=== PATIENT | female | born 1945 | race Caucasian/White ===

== ENCOUNTER 2018-12-19 12:34 | Inpatient (IN) ==
--- NOTE | 2018-12-19 14:08 | EKG Report ---
Test Performed on : 12/19/2018 2:02:27 PM Test Reason : seizure Blood Pressure : / mmHG Vent. Rate : 066 BPM Atrial Rate : 066 BPM P-R Int : 160 ms QRS Dur : 082 ms QT Int : 420 ms P-R-T Axes : 059 -37 022 degrees QTc Int : 440 ms Normal sinus rhythm. Left axis deviation Low voltage QRS Septal infarct (cited on or before 02-MAY-2015) Abnormal ECG When compared with ECG of 17-AUG-2018 07:48, fusion complexes are no longer present premature ventricular complexes. are no longer present Questionable change in initial forces of Septal leads Confirmed by Francine VALDES, Cory Sandoval ([id number]) on 12/19/2018 3:57:52 PM
--- NOTE | 2018-12-19 14:45 | Diag Imaging Result Doc PS360 ---
CT HEAD W/O CONTRAST - 12/19/2018 INDICATION: seizure COMPARISON: 07/13/2018 FINDINGS: The ventricles and sulci are normal in size and contour. No intracranial mass or hemorrhage. The skull is intact. The sinuses mastoids and middle ears are clear. IMPRESSION: Negative exam. This exam was performed using automated exposure control, adjustment of mA or kV according to patient size, and/or use of iterative reconstruction technique Electronically signed by Dell Brady 12/19/2018 2:43 PM
--- NOTE | 2018-12-19 15:01 | Diag Imaging Result Doc PS360 ---
CHEST-PORTABLE - 12/19/2018 INDICATION: seizure COMPARISON: 10/17/2018 FINDINGS: There is some linear atelectasis in the lung bases. The lungs are clear. Heart size is normal. No pneumothorax or pleural effusion. IMPRESSION: Linear atelectasis in the lung bases. Electronically signed by Dell Brady 12/19/2018 2:58 PM
[2018-12-19 17:26] LABS: BASO# 0.03 X1000 (0.0-0.2); BASO% 0.4 % (0.0-0.8); EOS# 0.23 X1000 (0.0-0.7); EOS% 3.2 % (0.0-10.0); HEMATOCRIT 35.1 % (37.0-47.0); HEMOGLOBIN 11.2 g/dL (12.0-16.0); LYMPH# 1.49 X1000 (1.2-3.4); LYMPH% 20.7 % (20.5-51.1); MCH 28.1 PG (27-31); MCHC 31.9 g/dL (33-37); MCV 88.2 FL (81-99); MONO# 0.55 X1000 (0.11-0.59); MONO% 7.6 % (1.7-9.3); MPV 10.9 FL (7.4-10.4); NEUT% 68.1 % (42.2-75.2); PLT 190 X1000 (130-400); RBC 3.98 XMIL (4.2-5.4); RDW 13.1 % (11.5-14.5)
[2018-12-19] MEDS: PERCOCET-5 PO PRN ×2 (17:27→23:06)
[2018-12-19 17:35] LABS: INR 0.96; PROTIME 13.5 Seconds (11.0-16.0)
[2018-12-19 17:50] LABS: AGAP 10; ALB/GLOB RATIO 1.6; ALBUMIN 3.6 g/dL (3.5-5.0); ALKALINE PHOSPHATASE 86 U/L (32-104); BUN 13 mg/dL (8-22); CHLORIDE 101 mmol/L (98-107); CK PROFILE 55 U/L (24-173); COSMO 279; CREATININE 0.6 mg/dL (0.5-0.9); ESTIMATED GFR > 60; GLUCOSE 84 mg/dL (70-104); GOT 16 U/L (10-30); GPT 8 U/L (10-36); POTASSIUM 4.2 mmol/L (3.5-5.1); SODIUM 140 mmol/L (136-145); TCO2 29 mmol/L (25-35); TOTAL BILIRUBIN 0.36 mg/dL (0.20-1.00); TOTAL PROTEIN 5.8 g/dL (6.3-8.3)
[2018-12-19 18:00] LABS: FREE T4 1.03 ng/dL (0.93-1.70)
[2018-12-19 18:03] LABS: TSH 9.99 uIUmL (0.27-4.20)
[2018-12-19 22:37] LABS: URINE SOURCE VOIDED
[2018-12-19 22:40] LABS: BILIRUBIN URINE NEGATIVE (NEGATIVE); BLOOD URINE NEGATIVE (NEGATIVE); COLOR YELLOW; GLUCOSE URINE NEGATIVE (NEGATIVE); KETONE URINE NEGATIVE (NEGATIVE); LEUKOCYTES URINE NEGATIVE (NEGATIVE); NITRITE URINE NEGATIVE (NEGATIVE); PH URINE 6.5; PROTEIN URINE NEGATIVE (NEGATIVE); SP GRAVITY URINE 1.004; TURBIDITY URINE CLEAR (CLEAR); UROBILINOGEN URINE NORMAL (NORMAL)
[2018-12-19 23:02] LABS: UR EPITHELIAL CELLS <10 /HPF (<10); URINE BACTERIA NEGATIVE /HPF; URINE RBC <10 /HPF (<10); URINE WBC <10 /HPF (<10)
[2018-12-19] MEDS: DEPAKOTE ER PO SCH (23:06)
[2018-12-19 23:46] LABS: UR AMPHETAMINES QUAL NONE DETECTED (NONE DETECT); UR BARBITUATES QUAL NONE DETECTED (NONE DETECT); UR BENZODIAZEPIN QUAL PRESUMPTIVE POSITIVE (NONE DETECT); UR CANNABINOIDS QUAL NONE DETECTED (NONE DETECT); UR COCAINE QUAL NONE DETECTED (NONE DETECT); UR METHADONE QUAL NONE DETECTED (NONE DETECT); UR OPIATES QUAL NONE DETECTED (NONE DETECT); UR OXYCODONE QUAL PRESUMPTIVE POSITIVE (NONE DETECT); UR PCP QUAL NONE DETECTED (NONE DETECT)
[2018-12-20 01:39] LABS: URINE CASTS NONE SEEN; URINE CRYSTALS NONE SEEN; URINE SMALL ROUND CELLS NONE SEEN; URINE YEAST PRESENT
[2018-12-20] MEDS: TYLENOL PO PRN ×2 (02:47→11:47)
[2018-12-20] MEDS: PERCOCET-5 PO PRN ×5 (02:47→20:24)
[2018-12-20] MEDS ORDERED: SYNTHROID PO SCH (09:00)
[2018-12-20] MEDS: PRILOSEC PO SCH (09:17)
[2018-12-20] MEDS: CENTRUM SILVER PO SCH (09:17)
[2018-12-20] MEDS: EFFEXOR XR PO SCH (09:17)
[2018-12-20] MEDS: VITAMIN B-12 PO SCH (09:17)
[2018-12-20] MEDS: DEPAKOTE ER PO SCH ×2 (09:17→20:23)
[2018-12-20] MEDS: LASIX PO SCH (09:17)
[2018-12-20] MEDS: VITAMIN D PO SCH (09:18)
[2018-12-20] MEDS: SYNTHROID PO SCH (09:20)
--- NOTE | 2018-12-20 18:21 | PROGRESS NOTE ---
DATE: 12/20/2018 SUBJECTIVE: Patient with no further seizure activity. She is desiring to eat. We left her without eating last evening due to potential for recurrent seizures. OBJECTIVE: Vital signs: T-max 100.5 degrees, pulse 90, blood pressure 106/45, O2 saturation on room air 92 to 94%. CV: RRR. Lungs: CTA. Extremities: Right lower extremity in a bandage. Neurologic: Cranial nerves 2-12 are intact. DIAGNOSTIC STUDIES: CT head negative. Chest x-ray: Linear atelectasis bilateral bases. Urine drug screen positive for oxycodone which she is on per Dr. Gonzalez and she is also positive for benzodiazepine. The patient denies that she has taken benzodiazepines and we have no record of those being given. Thyroid function tests were abnormal with TSH 9.99, free T4 1.03. CK, troponin, plasma lactate level normal. ASSESSMENT: 1. Possible seizure activity but doubtful. 2. History of conversion disorder. 3. History of bipolar disorder. 4. Postoperative day #1 status post right foot tendon surgery. 5. 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 6. History of right breast cancer. 7. Hypothyroidism. 8. Fever. PLAN: We will increase her Synthroid dosage from 25 to 56 mg daily. Continue her Depakote ER. Check EEG today. Keep her on seizure precautions. Advance her diet and monitor her clinically. Will add nebulizer treatments due to her fever and encouraged incentive spirometry and have low threshold for addition of antibiotics should fever persist or escalate. cc: MD Omar Romero MD
--- NOTE | 2018-12-20 18:25 | HISTORY AND PHYSICAL ---
CHIEF COMPLAINT: Seizure. HISTORY OF PRESENT ILLNESS: The patient is a 73-year-old white female followed in my medical practice. She had undergone right tendon surgery on her foot today per Dr. Gonzalez and apparently was in recovery when some seizure-like activity was performed with possible postictal state. I have been unable to reach the exact nursing personnel to get a full report. The patient has had evaluation for seizures in the past by several doctors. She is followed by neurologist in [place] for migraine headache. I believe this is Dr. Ghosh currently. She has also seen Dr. Magaña here in the hospital before, been some history of possible pseudoseizures and conversion disorder has been noted in the patient in the past. MEDICATIONS: Prior to admission are Depakote ER 250 mg p.o. b.i.d. the patient says she is on for migraine prevention per Dr. Ghosh, neurologist, omeprazole 40 mg p.o. daily, Synthroid 25 mcg p.o. daily, venlafaxine ER 75 mg p.o. daily, Lasix 40 mg p.o. daily, vitamin D3 2000 units p.o. daily, vitamin B12 1000 mcg sublingual daily, multivitamin 1 p.o. daily, Tylenol p.r.n. ALLERGIES: To sulfa. PAST MEDICAL HISTORY: 1. History of right breast cancer 1989. 2. History of right vocal cord cyst. 3. 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 4. Conversion disorder. 5. Bipolar disorder. PAST SURGICAL HISTORY: 1. CALOS, RSO 1981. 2. Partial esophagectomy with William pouch October 2013. 3. Laparoscopic cholecystectomy August 2015. 4. Right shoulder replacement per Dr. Sanchez August 2018. IMMUNIZATIONS: Pneumovax 23 given 2010, Prevnar 13 given August 2015, flu vaccine given 08/15/2018, Zostavax given July 2012. FAMILY HISTORY: Notable for PA in her mother at age 58, mother with diabetes mellitus, stroke in her mother, no cancer, hypertension in the family. 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 Has never been a smoker, does not drink alcohol. PHYSICAL EXAMINATION: VITAL SIGNS: Temperature 98.7 degrees, pulse 63, respirations 16, blood pressure 94/46, O2 saturation on room air 95%. GENERAL: Elderly white female, no bruising or skin breakdown identified. HEENT: NC/AT CRISTINE, EOMI, sclerae clear. No nystagmus, OP no redness tongue in the midline. No skin breakdown inside the mouth or tongue. NECK: No LA, JVD, no TMG or bruits. CV: RRR without murmur. LUNGS: CTA. ABDOMEN: Soft, nontender. EXTREMITIES: Right lower extremity is in a large bandage and boot. BREASTS/PELVIC/RECTAL: Deferred. NEURO: Cranial nerves 2-12 are intact. She moves all extremities. She is alert, orient x3. No focal deficits identified. ASSESSMENT: 1. Possible seizure activity, rule out pseudoseizure. 2. History of conversion disorder. 3. Bipolar disorder. 4. 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 5. Status post right foot tendon surgery per Dr. Gonzalez today. 6. History of right breast cancer. 7. History of right vocal cord cyst remotely. PLAN: Will check extensive labs to include CBC, PT/INR, CMP, troponin, total CK, TFTs, plasma lactate, urinalysis, urine drug screen, blood alcohol level, she has already had CT scan of the head done which is negative. Chest x-ray is negative except for some linear atelectasis at both lung bases. EKG shows normal sinus rhythm with left axis deviation. Will place her at seizure precautions. Resume her home medicines to include her Depakote ER. Check EEG tomorrow. cc: MD Omar Romero MD
[2018-12-20] MEDS: ALBUTEROL NEB INH SCH ×2 (19:30→22:48)
[2018-12-21] MEDS: PERCOCET-5 PO PRN ×5 (03:45→20:04)
[2018-12-21] MEDS: SYNTHROID PO SCH (05:43)
[2018-12-21 07:15] LABS: BASO# 0.04 X1000 (0.0-0.2); BASO% 0.8 % (0.0-0.8); EOS# 0.28 X1000 (0.0-0.7); EOS% 5.4 % (0.0-10.0); HEMATOCRIT 34.1 % (37.0-47.0); HEMOGLOBIN 10.9 g/dL (12.0-16.0); LYMPH# 1.35 X1000 (1.2-3.4); LYMPH% 26.1 % (20.5-51.1); MCH 27.9 PG (27-31); MCV 87.2 FL (81-99); MONO# 0.48 X1000 (0.11-0.59); MONO% 9.3 % (1.7-9.3); MPV 11.4 FL (7.4-10.4); NEUT# 3.03 X1000 (1.4-6.5); NEUT% 58.4 % (42.2-75.2); PLT 187 X1000 (130-400); RBC 3.91 XMIL (4.2-5.4); RDW 12.8 % (11.5-14.5); WBC 5.18 X1000 (4.8-10.8)
[2018-12-21 07:46] LABS: AGAP 10; BUN 9 mg/dL (8-22); CALCIUM 9.1 mg/dL (8.8-10.2); CHLORIDE 99 mmol/L (98-107); COSMO 270; CREATININE 0.7 mg/dL (0.5-0.9); ESTIMATED GFR > 60; GLUCOSE 91 mg/dL (70-104); POTASSIUM 3.9 mmol/L (3.5-5.1); SODIUM 136 mmol/L (136-145); TCO2 27 mmol/L (25-35)
--- NOTE | 2018-12-21 07:53 | Diag Imaging Result Doc PS360 ---
EXAM: CHEST-2 VIEWS HISTORY: fever TECHNIQUE: Chest two views COMPARISON: 12/19/2018 FINDINGS: The lungs are well expanded except for likely minimal atelectasis in the lung bases. The heart is not enlarged. The vessels are not distended. There are no infiltrates. No pleural effusions. Orthopedic replacement of the right shoulder. IMPRESSION: No pneumonia. Electronically signed by Lokesh Sandhu 12/21/2018 7:50 AM
[2018-12-21] MEDS: ALBUTEROL NEB INH SCH ×5 (07:59→23:05)
[2018-12-21] MEDS: LASIX PO SCH (08:10)
[2018-12-21] MEDS: EFFEXOR XR PO SCH (08:10)
[2018-12-21] MEDS: CENTRUM SILVER PO SCH (08:11)
[2018-12-21] MEDS: VITAMIN B-12 PO SCH (08:11)
[2018-12-21] MEDS: PRILOSEC PO SCH (08:11)
[2018-12-21] MEDS: DEPAKOTE ER PO SCH ×2 (08:11→20:05)
[2018-12-21] MEDS: VITAMIN D PO SCH (08:11)
[2018-12-21] MEDS: LOVENOX SUBQ SCH (08:12)
--- NOTE | 2018-12-21 08:16 | PROGRESS NOTE ---
DATE: 12/21/2018 SUBJECTIVE: Ms. Lee is lying in bed this morning. She is complaining of some pain in the right lower extremity, but overall feeling okay. OBJECTIVE: Right lower extremity exam: Her splint is clean, dry, and intact. She is able to move her toes well. ASSESSMENT: Status post right midfoot fusion. PLAN: From an Orthopedic standpoint, Ms. Lee is nonweightbearing right lower extremity, and she will need to see me in clinic this next Wednesday when she is discharged from the hospital. If she has any questions she can always call our office and talk with my nurse, Ann-Marie. cc: Omar Gonzalez MD
[2018-12-21] MEDS: TYLENOL PO PRN (12:19)
[2018-12-21 16:25] LABS: URINE SOURCE CLEAN CATCH
[2018-12-21 16:28] LABS: BILIRUBIN URINE NEGATIVE (NEGATIVE); BLOOD URINE NEGATIVE (NEGATIVE); COLOR YELLOW; GLUCOSE URINE NEGATIVE (NEGATIVE); KETONE URINE NEGATIVE (NEGATIVE); LEUKOCYTES URINE NEGATIVE (NEGATIVE); NITRITE URINE NEGATIVE (NEGATIVE); PROTEIN URINE NEGATIVE (NEGATIVE); TURBIDITY URINE CLEAR (CLEAR); UR EPITHELIAL CELLS <10 /HPF (<10); URINE BACTERIA NEGATIVE /HPF; URINE RBC <10 /HPF (<10); URINE WBC <10 /HPF (<10); UROBILINOGEN URINE NORMAL (NORMAL)
--- NOTE | 2018-12-21 23:23 | EEG REPORT ---
DATE: 12/20/2018 COMMENT: This is a digitally recorded EEG on a 73-year-old patient with recent episode, question of seizure. Several previous EEGs have been normal. FINDINGS: During waking, medium and higher amplitude 10 hertz posterior rhythm is present symmetrically, and reacts at times to eye opening. Background contains polymorphic and rhythmic theta frequencies over the frontal and central regions symmetrically. There are many 1-5 second bursts of paroxysmal high-amplitude rhythmic delta. There is occasional associated sharply contoured wave, but not a consistent sharp wave or spike. These discharges are generalized and intermittent throughout the record. Video shows no clinical change during these bursts of higher amplitude slowing. Drowsing occurred briefly. Organized stage 2 sleep was not recorded. INTERPRETATION: Abnormal EEG because of paroxysmal generalized slowing, including generalized rhythmic delta. CORRELATION: This is indicative of a diffuse encephalopathy, and is nonspecific. This EEG pattern can be associated with seizure. This is usually due to toxic/metabolic state. cc: MD Preston Anna III, MD Justin Daigre, MD MTDD
[2018-12-22] MEDS: PERCOCET-5 PO PRN ×6 (00:41→21:58)
[2018-12-22] MEDS: SYNTHROID PO SCH (05:37)
[2018-12-22] MEDS: ALBUTEROL NEB INH SCH ×5 (08:02→23:48)
--- NOTE | 2018-12-22 09:15 | PROGRESS NOTE ---
DATE: 12/22/2018 SUBJECTIVE: No more seizure activity. The patient remains in a cast on her right leg with a drain in place. She is eating well. She says she was off her anticonvulsant in the form of Depakote for about a week prior to the surgery. OBJECTIVE: Vital Signs: Afebrile, respirations 16, blood pressure 113/60. Cardiovascular: Regular rate and rhythm. Lungs: Clear to auscultation. Abdomen: Nontender. Extremities: Left lower extremity with no calf tenderness, cords, or edema. Right in the brace. Neurologic: Cranial nerves 2-12 are intact. DIAGNOSTIC STUDIES: EEG showed abnormality with findings consistent with a seizure as it showed paroxysmal generalized slowing and generalized rhythmic delta wave. ASSESSMENT: 1. Seizure with abnormal electroencephalogram, with patient off her anticonvulsant in the form of Depakote prior to the surgery. 2. History of conversion disorder. 3. History of bipolar disorder. 4. Postoperative day #3 status post right foot surgery per Dr. Gonzalez. 5. 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 6. History of right breast cancer. 7. Hypothyroidism. 8. Fever, resolved. PLAN: Will continue Depakote ER at prior dosage that she was on. We have adjusted her Synthroid. She has remained on seizure precautions. I spoke with her about following up with Dr. Ghosh and she plans on doing so, and we will ask Dr. Magaña to see the patient to see if she needs adjustment on her anticonvulsant now prior to going home. Otherwise, she is stable and will likely be able to be discharged soon. cc: MD Omar Romero MD
[2018-12-22] MEDS: VITAMIN B-12 PO SCH (09:33)
[2018-12-22] MEDS: EFFEXOR XR PO SCH (09:33)
[2018-12-22] MEDS: LASIX PO SCH (09:33)
[2018-12-22] MEDS: PRILOSEC PO SCH (09:33)
[2018-12-22] MEDS: DEPAKOTE ER PO SCH ×2 (09:33→23:00)
[2018-12-22] MEDS: VITAMIN D PO SCH (09:33)
[2018-12-22] MEDS: LOVENOX SUBQ SCH (09:34)
[2018-12-22] MEDS: CENTRUM SILVER PO SCH (09:35)
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
--- NOTE | 2018-12-22 19:21 | PROGRESS NOTE ---
DATE: 12/22/2018 SUBJECTIVE DATA: Ms. Lee is lying comfortably in the bed. She states that Dr. Magaña came and saw her earlier today. She has a little bit of pain to the right lower extremity, but overall well. OBJECTIVE DATA: Right Lower Extremity Exam: Her splint is clean, dry and intact. She is able to move her toes. She has good sensation. ASSESSMENT: Status post right midfoot fusion. PLAN: From orthopedic standpoint, Ms. Lee is nonweightbearing to the right lower extremity. She is good for discharge on our end. We do want her to follow up next Wednesday or Wednesday once she is discharged from the hospital. Should she have any questions, she is welcome to call the office. Dictated by GULSHAN Rider for Omar Gonzalez MD cc: GULSHAN Rider MD
--- NOTE | 2018-12-22 19:39 | PROGRESS NOTE ---
DATE: 12/21/2018 LATE ENTRY PROGRESS NOTE: SUBJECTIVE: Patient without any seizure activity or difficulties. OBJECTIVE: Vital Signs: T-max 100.5. Vital signs stable. Cardiovascular: RRR. Lungs: CTA. Abdomen: Nontender, nondistended. Extremities: Right lower extremity In a brace with drain in place. Neurologic: Cranial nerves are intact. No focal deficits. LAB: Show white count of 5.1, hemoglobin 10.9, platelets 187,000. BMP normal. Calcium normal. UA from 12/20/2018 negative. ASSESSMENT: 1. Possible seizure activity unlikely. 2. Convert history of conversion disorder. 3. History of bipolar disorder. 4. Postoperative day #2 status post right foot surgery per Dr. Gonzalez. 5. 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 6. History of right breast cancer. 7. Hypothyroidism. 8. Fever, likely related to recent surgery. PLAN: At this time patient is back on her Depakote ER. She has had no further seizure activity. We have adjusted upward on her Synthroid dosage. Am going to monitor her temperature. We will check UA and EEG has been done with results are pending. We will await those EEG results before discharge. cc: MD Omar Romero MD
[2018-12-23] MEDS: SYNTHROID PO SCH (06:31)
[2018-12-23] MEDS: PERCOCET-5 PO PRN ×4 (06:34→15:30)
[2018-12-23] MEDS: ALBUTEROL NEB INH SCH ×3 (07:39→16:12)
[2018-12-23] MEDS: EFFEXOR XR PO SCH (09:34)
[2018-12-23] MEDS: LASIX PO SCH (09:34)
[2018-12-23] MEDS: PRILOSEC PO SCH (09:34)
[2018-12-23] MEDS: VITAMIN B-12 PO SCH (09:34)
[2018-12-23] MEDS: CENTRUM SILVER PO SCH (09:34)
[2018-12-23] MEDS: VITAMIN D PO SCH (09:34)
[2018-12-23] MEDS: DEPAKOTE ER PO SCH (09:34)
[2018-12-23] MEDS: LOVENOX SUBQ SCH (09:35)
--- NOTE | 2018-12-23 11:28 | PROGRESS NOTE ---
DATE: 12/23/2018 Ms. Lee reports no more episodes of shaking or altered awareness. We reviewed her recent and previous history. I do not have any new suggestion. I would continue divalproex at her outpatient dose and plan for discharge on that medicine. I do not think either her prior or recent episode was seizure. I will be glad to see her again if needed. cc: MD Omar Anna III, MD [facility]
--- NOTE | 2018-12-23 13:29 | PROGRESS NOTE ---
DATE: 12/23/2018 SUBJECTIVE: Patient with no episodes of seizure-like activity. She has been feeling okay. OBJECTIVE: Vital Signs: Afebrile. Vital signs stable. CV: RRR. Lungs: Coarse breath sounds. Good air movement. Extremities: Right lower extremity in a cast. Left lower extremity with no calf tenderness, cords or edema. Abdomen: Soft, NT, ND. No mass. No HSM. Neurologic: CN 2 through 12 intact. NF. Consultation and workup per Dr. Magaña reviewed in detail, and he does not think the activity was any seizure activity whatsoever. ASSESSMENT: 1. Pseudoseizures. 2. Conversion disorder. 3. Bipolar disorder. 4. History of right foot and ankle surgery. 5. 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 6. History of right breast cancer. 7. Hypothyroidism. PLAN: The patient is going to be left on the home dosage of Depakote ER she was on per Dr. Dickerson for migraine prevention as recommended per Dr. Magaña, and she will continue her other home medications. She has been given a prescription and handed a prescription per Dr. Gonzalez for Percocet 5. She will follow up with him in 3 to 4 days, with me in 3 weeks. Follow up with Dr. Dickerson within 2 weeks. cc: MD Omar Romero MD
[2018-12-23 15:25] VITALS: BP 110/68
--- NOTE | 2019-01-22 07:24 | DISCHARGE SUMMARY ---
ADMISSION DATE: 12/19/2018 DISCHARGE DATE: 12/23/2018 DIAGNOSES: 1. Pseudoseizures. 2. Conversion disorder. 3. Bipolar disorder. 4. History of right foot and ankle surgery recently. 5. 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 6. History of right breast cancer. 7. Hypothyroidism. PROCEDURES: 1. Chest x-ray done 12/19/2018: Linear atelectasis in the lung bases. 2. CT scan of the head without contrast done 12/19/2018: Negative exam. 3. Chest x-ray done 12/21/2018: No pneumonia. 4. EEG done 12/20/2018: Abnormal EEG because of paroxysmal generalized slowing, including generalized rhythmic delta waves. CONSULTANTS: 1. Dr. Jeanmarie Magaña, Neurology. 2. Dr. Gonzalez, Orthopedics. REASON FOR ADMISSION AND HOSPITAL COURSE: The patient is a 73-year-old white female, followed in my medical practice. She was being treated by Dr. Gonzalez for her foot and ankle, and underwent surgery for that, and had an episode in the recovery room, where she had some seizure-like activity. She has been followed by Dr. Ghosh retirement for migraine headaches, and a couple of times in the past has been evaluated by Dr. Magaña here. She has a history of conversion disorder, and has been evaluated by numerous physicians in regard to this in the past as she has had episodes of hoarseness, and underwent extensive ENT workup in [place] with strobe light testing, etc., and ultimately was found to have conversion disorder. The patient also has had pseudoseizures in the past. She has been on some Depakote at low dose [address] Ghosh for prevention, and she is on this Depakote ER at 250 mg b.i.d. for prevention of migraines, and may have some mood stabilizing affects as well. She is also on Effexor XR 75 mg daily. At any rate, the patient was evaluated. She underwent CT head, which was negative, and was monitored on the floor without any further seizure-like activity. She was placed back on her low-dose Depakote ER. She had no findings of tongue or mouth lacerations. No loss of bowel or bladder control. Lab testing included total CK which was normal at 55. CMP and repeat BMP and CBC were acceptable. Urinalysis negative for protein and blood, and was otherwise negative. Drug screen was notably positive for benzodiazepines and oxycodone. The patient had no further seizure-like activity. She does have a complicated medical history as she has a history of breast cancer in the past, and also signet ring cell carcinoma of the stomach with good result after treatment with surgery. The patient was evaluated by Dr. Magaañ, and no definite findings of seizures were noted. Dr. Magaña evaluated the patient, and he thought the EEG findings were likely transient, thought related to postanesthetic pattern and not her baseline. If she had ongoing symptoms, would need additional prolonged video EEG. The patient had no further difficulties. We did adjust her Synthroid as her TSH was elevated at 9.99, and her free T4 was 1.03. We increased her Synthroid from 25 to 50 mcg daily prior to discharge. DISCHARGE MEDICATIONS: Included Percocet 5, one to two p.o. every 4 hours as needed for pain control of her ankle surgery, omeprazole 40 mg p.o. daily, Synthroid 50 mcg daily, Effexor XR 75 mg daily, Lasix 40 mg daily, vitamin D3, 2000 units p.o. daily, vitamin B12, 1000 mcg p.o. daily, Depakote ER 250 mg p.o. b.i.d., multivitamin, Tylenol p.r.n. FOLLOWUP: The patient will follow up with Dr. Gonzalez in the next week. cc: MD Omar Romero MD
== END 2018-12-23 16:43 | disposition home health service (06) | DRG 880 ==
LOC: DIRADM → OBSVTOIN 12:34 → 4N 13:22
PROVIDERS: ADMIT Orthopaedic Surgery; ATTEND Orthopaedic Surgery
CPT/HCPCS: 70450; 71010; 71020; 71045; 71046; 80048; 80053; 80101; 80301; 80307; 80320; 80324; 80345; 80346; 80353; 80358; 80361; 80365; 81001; 82055; 82550; 83605; 83735; 83992; 84439; 84443; 84484; 85025; 85610; 93005; 93010; 94640; 94761; 94799; 95816; A9270; G0431; G0434; G0479; G0480; G6040; J1650

== ENCOUNTER 2019-05-03 12:03 | Inpatient (IN) ==
[2019-05-03] MEDS ORDERED: ZOSYN 4.5 GM in NS 100 ML IV ONE (12:42)
[2019-05-03] MEDS ORDERED: VANCOMYCIN 1 GM/NS 1 GM/250 ML IVPB IV ONE (12:43)
[2019-05-03 13:01] LABS: BASO# 0.03 X1000 (0.0-0.2); BASO% 0.6 % (0.0-0.8); EOS# 0.24 X1000 (0.0-0.7); EOS% 4.9 % (0.0-10.0); HEMATOCRIT 35.4 % (37.0-47.0); LYMPH# 1.56 X1000 (1.2-3.4); LYMPH% 32.1 % (20.5-51.1); MCH 28.1 PG (27-31); MCHC 33.9 g/dL (33-37); MCV 82.9 FL (81-99); MONO# 0.44 X1000 (0.11-0.59); MONO% 9.1 % (1.7-9.3); MPV 11.3 FL (7.4-10.4); NEUT# 2.59 X1000 (1.4-6.5); NEUT% 53.3 % (42.2-75.2); PLT 182 X1000 (130-400); RBC 4.27 XMIL (4.2-5.4); RDW 12.9 % (11.5-14.5); WBC 4.86 X1000 (4.8-10.8)
[2019-05-03 13:08] LABS: INR 0.89; PROTIME 12.8 Seconds (11.0-16.0); PTT 33.3 Seconds (22.3-41.8)
--- NOTE | 2019-05-03 13:21 | Diag Imaging Result Doc PS360 ---
CHEST-1 VIEW - 05/03/2019 INDICATION: cough COMPARISON: 12/21/2018 FINDINGS: There is some minimal patchy linear atelectasis or scarring in the lung bases bilaterally similar to prior exams. No new infiltrates. Heart size and pulmonary vascularity is normal. No pneumothorax or pleural effusion. IMPRESSION: Mild bibasilar linear atelectasis or scarring. No acute disease. Electronically signed by Dell Brady 05/03/2019 1:19 PM
[2019-05-03 13:29] LABS: AGAP 10; ALB/GLOB RATIO 1.4; ALBUMIN 3.8 g/dL (3.5-5.0); ALKALINE PHOSPHATASE 110 U/L (32-104); BUN 14 mg/dL (8-22); CALCIUM 9.4 mg/dL (8.8-10.2); CHLORIDE 102 mmol/L (98-107); CK PROFILE 38 U/L (24-173); COSMO 280; CREATININE 0.8 mg/dL (0.5-0.9); ESTIMATED GFR > 60; GLUCOSE 95 mg/dL (70-104); GOT 20 U/L (10-30); GPT 12 U/L (10-36); POTASSIUM 3.4 mmol/L (3.5-5.1); SODIUM 140 mmol/L (136-145); TCO2 28 mmol/L (25-35); TOTAL BILIRUBIN 0.35 mg/dL (0.20-1.00); TOTAL PROTEIN 6.5 g/dL (6.3-8.3)
[2019-05-03] MEDS ORDERED: NS 1,000 ML IV ONE ×2 (14:05→14:51)
--- NOTE | 2019-05-03 14:21 | PROVIDER DOCUMENTATION ---
This chart was entered by Nilda Crenshaw Scribe, acting as scribe for Allen Vale MD. HPI-General Adult - General Chief Complaint: Generalized Pain Stated Complaint: WEAKNESS Time Seen by Provider: 05/03/19 12:06 Source: patient Allergies/Adverse Reactions: Patient Allergies Allergy/AdvReac Type Severity Reaction Status Date / Time Sulfa (Sulfonamide Allergy HIVES Verified 08/24/18 10:29 Antibiotics) Home Medications: Home Medication List Medication Instructions Recorded Confirmed Last Taken Type Levothyroxine [Synthroid] 25 microgm PO DAILY 02/11/13 12/19/18 12/18/18 07:00 History Omeprazole 40 mg PO DAILY 02/11/13 12/19/18 12/18/18 07:00 History Venlafaxine HCl [Venlafaxine HCl 75 mg PO DAILY 07/29/14 12/19/18 12/18/18 07:00 History ER] Furosemide [Lasix] 40 mg PO DAILY 08/31/16 12/19/18 12/18/18 07:00 History Cholecalciferol (Vitamin D3) 2,000 units PO DAILY 07/13/18 12/19/18 12/18/18 07:00 History [Vitamin D3] Cyanocobalamin (Vitamin B-12) 1,000 mcg SL DAILY 07/13/18 12/19/18 12/18/18 07:00 History [Vitamin B12] Divalproex E.r. [Depakote ER] 250 mg PO BID 07/13/18 12/19/18 12/18/18 07:00 History Multivitamin with Minerals [One 1 tab PO DAILY 07/13/18 12/19/18 12/18/18 07:00 History Tablet Daily W-Minerals] Acetaminophen [Tylenol] 650 mg PO Q6H PRN PRN tablet 07/15/18 12/19/18 10/07/18 07:00 Rx Oxycodone/APAP 5 mg/325 mg 1 - 2 each PO Q4H PRN PRN #15 12/23/18 Unknown Rx [Percocet-5] tablet - History of Present Illness -Gen Adult Nature of Presenting Problems: Patient is a 73 year old female who presents to the ED via EMS with weakness and generalized body pains that started this morning. Patient states having fever and chills yesterday but has not today. Reports seeing PCP 2 days ago for redness and swelling to nose and right cheek. States her PCP prescribed her medication for the swelling and redness. Location of Pain/Injury: reports: generalized Pain Radiation: reports: no radiation Quality of Pain: reports: aching Severity: reports: mild Onset/Duration: reports: this morning Timing: reports: still present Associated Symptoms: reports: weakness Similar Symptoms Previously?: Yes Recently seen or treated by another doctor?: Yes Review of Systems - Adult - REVIEW OF SYSTEMS - ADULT Constitutional: reports: no symptoms reported. denies: chills, fever, fatique Eyes: reports: no symptoms reported Ears, Nose, Mouth & Throat: reports: no symptoms reported Cardiovascular: reports: no symptoms reported Respiratory: reports: no symptoms reported Gastrointestinal: reports: no symptoms reported Genitourinary: reports: no symptoms reported Musculoskeletal: reports: see HPI, muscle aches (generalized), muscle weakness. denies: joint swelling Integumentary: reports: see HPI, other (swelling and redness to nose and right cheek). denies: hives, itching, rash Neurological: reports: no symptoms reported Psychiatric: reports: no symptoms reported Endocrine: reports: no symptoms reported Hematologic/Lymphatic: reports: no symptoms reported Allergic/Immunologic: reports: no symptoms reported All Other Systems: Reviewed and Negative Past History - Adult - PAST MEDICAL HISTORY-ADULT Review of Records: reports: Old Records Reviewed, Nursing Assessment Review, Medications Reviewed, Social history reviewed & non-contributory. Major Childhood Illnesses: reports: denies history Cardiovascular: reports: denies history Respiratory: reports: denies history Gastrointestinal: reports: cancer, GERD Obstetrical/Gynecological: reports: denies history Genitourinary: reports: denies history Musculoskeletal: reports: denies history Neurological: reports: headaches/migraines Psychiatric: reports: depression Endocrine/Immune: reports: thyroid disorder Other Conditions: reports: denies history - PRIOR SURGERIES/PROCEDURES Surgical/Procedure History: reports: cholecystectomy, hysterectomy, tonsillectom y, bowel surgery - IMMUNIZATION STATUS Childhood Immunizations: See Nurse Assessment Flu Vaccine: See Nurse Assessment - FAMILY HISTORY Family History: reviewed, not pertinent - SOCIAL HISTORY Smoking: denies Substance Use: denies Physical Exam-General - PHYSICAL EXAM-ADULT Initial Vital Signs Reviewed: Yes - CONSTITUTIONAL General Appearance: alert, no apparent distress. negative: lethargic, slow to respond - HEAD, EARS, NOSE, MOUTH & THROAT HENMT: moist mucous membranes, other (swelling and erythema to nose and right cheek). negative: hearing deficit - RESPIRATORY Respiratory: chest non-tender, lungs clear, normal breath sounds. negative: crackles, rhonchi, stridor - CARDIOVASCULAR Cardiovascular: normal peripheral pulses, regular rate, rhythm. negative: tachycardia, systolic murmur - GASTROINTESTINAL (ABDOMEN) Abdominal Exam: normal bowel sounds, non tender, soft. negative: guarding, rebound - MUSCULOSKELETAL Extremity: non-tender, normal inspection. negative: deformity, erythema, swelling - SKIN Integumentary: warm/dry, erythema (nose and right cheek), swelling (nose and right cheek). negative: cyanosis, ecchymosis, laceration(s) - NEUROLOGIC Neurologic: grossly normal. negative: aphasia, facial droop - PSYCHIATRIC Psych/Mental Status: normal mood/affect, oriented x 3. negative: anxious Progress - PLAN OF CARE/RESULTS Progress/Plan/Lab Results: Vital Signs - 8 hr 05/03/19 12:07 Temperature 97.8 F Pulse Rate 90 Respiratory Rate 18 Blood Pressure 121/84 O2 Sat by Pulse Oximetry 98 Orders Category Date Time Status Cardiac Monitoring DIRECTED Care 05/03/19 12:28 Active IV Insertion ORDERED Care 05/03/19 12:28 Active Notify MD of + Sepsis Screen NOW Care 05/03/19 12:28 Active Notify Physician As Ordered Care 05/03/19 12:28 Active CHEST-1 VIEW [RAD] Stat Exams 05/03/19 12:28 Ordered BLOOD CULTURE [BLDCUL] Stat Lab 05/03/19 12:28 Uncollected CBC WITH DIFF [HEME] Stat Lab 05/03/19 12:39 Ordered CK PROFILE [SP CHEM] Stat Lab 05/03/19 12:28 Uncollected COMPREHENSIVE METABOLIC PANEL [CHEM] Stat Lab 05/03/19 12:28 Uncollected LACTATE, PLASMA [CHEM] Q3H Lab 05/03/19 12:30 Uncollected LACTATE, PLASMA [CHEM] Q3H Lab 05/03/19 15:30 Uncollected LACTATE, PLASMA [CHEM] Q3H Lab 05/03/19 18:30 Uncollected PROTIME WITH INR [COAG] Stat Lab 05/03/19 12:28 Uncollected PTT [COAG] Stat Lab 05/03/19 12:28 Uncollected TROPONIN T Stat Lab 05/03/19 12:28 Uncollected URINALYSIS W/POSS RFLX CULT [URINALYSIS] Stat Lab 05/03/19 12:28 Uncollected Oxygen Device Stat Oth 05/03/19 12:28 Active Result Diagrams: 05/03/19 12:45 05/03/19 12:45 - EKG 1 Time of EKG reading by physician:: 12:24 EKG Read and Signed by:: Allen Vale EKG Interpretation (*Must complete 3 of following elements*): Abnormal Rate: 77 Rhythm: normal sinus rhythm [place]: left MA Interval: normal Comments: abnormal ECG - XRAY 1 XRAY Study: Chest Impression: See EMR Report ( CHEST-1 VIEW - 05/03/2019 INDICATION: cough COMPARISON: 12/21/2018 FINDINGS: There is some minimal patchy linear atelectasis or scarring in the lung bases bilaterally similar to prior exams. No new infiltrates. Heart size and pulmonary vascularity is normal. No pneumothorax or pleural effusion. IMPRESSION: Mild bibasilar linear atelectasis or scarring. No acute disease. Electronically signed by Dell Brady 05/03/2019 1:19 PM 05/03/19 1319 Interpreting Physician: Dell Brady MD Dictated Date/Time: 05/03/19 1318 cc: Allen Vale MD; Preston Anthony MD) - CONSULTS/PCP/HOSPITALIST Notification #1 *Consult/PCP/Hospitalist*: dr Ferrell Time Discussed: 14:19 Consult Disposition: Admit Departure - Departure Date of Disposition Decision: 05/03/19 Time of Disposition Decision: 14:19 DIAGNOSIS: Erysipelas, Facial cellulitis, Weak Disposition: ADMITTED INPATIENT 09 Certified Medical Emergency: Emergent Condition: Stable Referrals and Follow-Ups: Preston Anthony MD [Primary Care Provider] - - Critical Care Note This patient required my direct & personal management of CC.: Yes Total Time (mins): 30 Critical Care Statement: This patient required my direct personal management to treat or rule out processes, the absence of which, could potentiallly result in sudden, clinically significant life or limb threatening deterioration. Attestation - Physician/ GHULAM Attestation The physician spent face to face time with patient:: Yes Advanced Practice Provider documentation review:: Supervising physician onsite and consulted in the evaluation and care of this patient. The physician did have a face to face encounter with the patient. This chart was documented by the indicated scribe, (Nilda Crenshaw Scribe) and accurately reflects the services I performed and decisions made by me, Allen Vale MD, as attested by the provider's signature.
[2019-05-03 14:26] LABS: URINE SOURCE CLEAN CATCH
[2019-05-03 14:33] LABS: BILIRUBIN URINE NEGATIVE (NEGATIVE); BLOOD URINE NEGATIVE (NEGATIVE); COLOR YELLOW; GLUCOSE URINE NEGATIVE (NEGATIVE); KETONE URINE TRACE mg/dL (NEGATIVE); LEUKOCYTES URINE MODERATE (NEGATIVE); NITRITE URINE NEGATIVE (NEGATIVE); PH URINE 6.5; PROTEIN URINE TRACE mg/dL (NEGATIVE); SP GRAVITY URINE 1.018; TURBIDITY URINE CLEAR (CLEAR); UR EPITHELIAL CELLS <10 /HPF (<10); URINE BACTERIA NEGATIVE /HPF; URINE RBC <10 /HPF (<10); URINE WBC <10 /HPF (<10); UROBILINOGEN URINE NORMAL (NORMAL)
--- NOTE | 2019-05-03 14:49 | EKG Report ---
Test Performed on : 05/03/2019 12:24:18 PM Test Reason : ED. NO EKG ORDER FOR MUSE Blood Pressure : / mmHG Vent. Rate : 077 BPM Atrial Rate : 077 BPM P-R Int : 150 ms QRS Dur : 088 ms QT Int : 392 ms P-R-T Axes : 060 -44 039 degrees QTc Int : 443 ms Normal sinus rhythm. Left axis deviation Abnormal ECG When compared with ECG of 19-DEC-2018 14:02, No significant change was found Unconfirmed Result
[2019-05-03] MEDS ORDERED: MORPHINE IV PRN ×2 (14:51→18:26)
[2019-05-03] MEDS ORDERED: ZOFRAN IV PRN (14:51)
[2019-05-03] MEDS ORDERED: TORADOL IV PRN (14:51)
[2019-05-03] MEDS ORDERED: TYLENOL PO PRN (14:51)
--- NOTE | 2019-05-03 16:14 | Diag Imaging Result Doc PS360 ---
EXAM: MRI ORBIT/FACE/NECK W/WO CON INDICATION: r facial erysipelas TECHNIQUE: COMPARISON: None. FINDINGS: There is right periorbital soft tissue edema and enhancement consistent with cellulitis. No post septal extension is appreciated. The globes are intact. No well-defined abscess is identified in the facial soft tissues. The paranasal sinuses are clear. The cavernous sinuses are patent and exhibit normal enhancement. There is no evidence of cavernous sinus thrombosis or abscess. Limited views of the brain parenchyma reveals mild patchy T2 hyperintensity suggesting mild microangiopathy. No abnormal intracranial enhancement is appreciated. IMPRESSION: 1.Preseptal periorbital cellulitis on the right as described with no post septal extension. 2.No evidence of cavernous sinus thrombosis or abscess. Electronically signed by Theo Mejia 05/03/2019 4:12 PM
[2019-05-03] MEDS ORDERED: POTASSIUM CHLORIDE 30 MEQ in NS 1,000 ML IV ONE (18:27)
[2019-05-03] MEDS ORDERED: VANCOMYCIN IV PER PHARMACY MISC SCH (18:30)
[2019-05-03] MEDS: ZOSYN 3.375 GM in NS 50 ML IV SCH (18:43)
[2019-05-03] MEDS ORDERED: VANCOMYCIN 1,500 MG in NS 250 ML IV ONE (19:00)
--- NOTE | 2019-05-03 20:18 | HISTORY AND PHYSICAL ---
CHIEF COMPLAINT: Right facial swelling and nose swelling and redness. HISTORY OF PRESENT ILLNESS: The patient is a 73-year-old white female followed in my medical practice who came to the office on 05/02 with right-sided facial swelling and fever, achiness, dizziness, some mild cough, sores inside of her right nose and on her right nose and some serous discharge from the right distal nose. She was seen and given 1 g of Rocephin IM and started on antibiotics of Avelox 400 mg daily and erythromycin ophthalmic ointment to the right eye q.i.d. She says she took the medications and today she felt somewhat weak when she arose. She has not had any definite fever. She had some difficulty getting about this morning. She does suffer from severe conversion disorder which may complicate the picture here. She promptly went to the ER despite being advised to come on into the office for re-evaluation. In the ER, the ER physician had not seen the patient yesterday when her symptoms had begun the night before last. Fortunately, the right eye swelling has diminished by about half and the right cheek swelling has diminished by about half and the right nasal discharge and redness and swelling have decreased some as well, but she is not feeling well at all. MEDICATIONS: Prior to admission are: Avelox 400 mg p.o. daily, erythromycin ophthalmic ointment to the right eye q.i.d., Effexor XR 75 mg p.o. daily, Synthroid 50 mcg p.o. daily, Lasix 40 mg p.o. daily, omeprazole 40 mg p.o. daily, Depakote ER [address] b.i.d. [address] Dr. Doe her neurologist, multivitamin 1 p.o. daily, vitamin D3 2000 international units p.o. daily, B12 1000 mcg p.o. daily. ALLERGIES: Sulfa. PAST MEDICAL HISTORY: 1. Notable for severe conversion disorder with history of prominent admissions and workups related to this. 2. Pseudoseizures. 3. Bipolar disorder. 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 5. History of right breast cancer. 6. Hypothyroidism. 7. History of right vocal cord cyst remotely. PAST SURGICAL HISTORY: 1. CALOS/RSO 1981. 2. Partial esophagectomy with William's pouch, October 2013. 3. Laparoscopic cholecystectomy, August 2015. 4. Right shoulder replacement per Dr. Sanchez, August 2018. 5. History of right foot surgery, 2019. IMMUNIZATIONS: Pneumovax 23 given in 2010, Prevnar 13 given August 2015, Tdap given August 2013, Zostavax given July 2012. Flu vaccine last given 08/15/2018. FAMILY HISTORY: Notable for mother with [place] at age 58, mother with diabetes mellitus, stroke in her mother. No cancer or hypertension in the family. SOCIAL HISTORY: The patient lives in [place], She is , has 1 child. 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 Never been a smoker. Does not drink alcohol. REVIEW OF SYSTEMS: Negative except as above. PHYSICAL EXAMINATION: Temperature afebrile, pulse 90, respirations 18, blood pressure 121/84. O2 sat room air 98%. GENERAL: Mildly obese white female. SKIN: There is mild to moderate redness and swelling to the right zygoma, cheek area, mild to moderate swelling at the right orbit without significant redness there, but her eye is swelled. She is able to see out of it today whereas yesterday it was swollen shut. It is about half the size it was yesterday. The right nose diffusely has moderate swelling and redness. Yesterday there was some serous discharge from the distal third of the nose, but there is none today. HEENT: CRISTINE. EOMI. Sclerae minimal injection on the right. TMs clear. OP no redness. Tongue in the midline. NECK: No LA, TMG, JVD, or bruits. CARDIOVASCULAR: RRR. No murmur. LUNGS: CTA. BACK: No point tenderness. ABDOMEN: Soft, nontender, nondistended. No mass. No HSM. EXTREMITIES: No calf tenderness, cords or edema. NEUROLOGIC: Cranial nerves 2-12 are intact. No focal deficits. LAB DATA: Obtained by the ER physician shows white count 4.86, hemoglobin 12.0, hematocrit 35.4, platelets 182,000. Sodium 140, potassium 3.4, chloride 102, CO2 28, BUN 14, creatinine 0.8, glucose 95, calcium 9.4, total bilirubin 0.35, AST 20, ALT 12, alkaline phosphatase 110, total CK 38, troponin less than 0.01, total protein 6.5, albumin 3.8, plasma lactate 2.4 which is elevated. PT 12.8, INR 0.89, PTT 33.3. Urinalysis trace protein and ketones, moderate leukocytes, but on microscopic exam no WBCs, epithelial cells less than 10. Negative bacteria. ASSESSMENT: 1. Erysipelas, right cheek, nose and orbit, improved overall. 2. Weakness. 3. Conversion disorder. 4. History of pseudoseizures. 5. Bipolar disorder. 6. History of signet ring cell carcinoma status post surgical correction 2012. 7. History of vocal cord cyst removal, remote. 8. History of right breast cancer. 9. Pyuria. PLAN: The patient with the elevated lactate level will be admitted and she has been started on Zosyn and vancomycin per the ER physician and will continue that. Apply warm compresses to the right side of the face. Continue her home medications and monitor closely here in the hospital. Blood cultures x 2 have been obtained and urine culture is also obtained. Will follow the progress on the right facial swelling. The ER physician has ordered MRI of the orbit and right face and we will follow that as well. cc: MD SARAH Romero
[2019-05-03] MEDS: DEPAKOTE ER PO SCH (20:27)
[2019-05-04] MEDS: ZOSYN 3.375 GM in NS 50 ML IV SCH ×5 (00:08→21:38)
[2019-05-04] MEDS: SYNTHROID PO SCH (06:09)
[2019-05-04] MEDS: PRILOSEC PO SCH (08:36)
[2019-05-04] MEDS: VANCOMYCIN 1,100 MG in NS 250 ML IV SCH (08:36)
[2019-05-04] MEDS: LASIX PO SCH (08:37)
[2019-05-04] MEDS: DEPAKOTE ER PO SCH ×2 (08:37→21:38)
[2019-05-04] MEDS: CENTRUM SILVER PO SCH (08:37)
[2019-05-04] MEDS: VITAMIN B-12 PO SCH (08:37)
[2019-05-04] MEDS: VITAMIN D PO SCH (08:37)
[2019-05-04] MEDS: EFFEXOR XR PO SCH (08:38)
[2019-05-04] MEDS ORDERED: SALINE LOCK IV FLUID XX ONE (12:56)
--- NOTE | 2019-05-04 15:11 | PROGRESS NOTE ---
DATE: 05/04/2019 SUBJECTIVE: Patient is overall feeling stronger and some better. She was scheduled for hyperparathyroid surgery tomorrow by Dr. Valencia in [place]. With this infection, she will not be able to undergo that. OBJECTIVE: Afebrile. Vital signs stable.CV: RRR. Lungs: Clear. Extremities: No calf tenderness, cords or edema. Neurologic: Nonfocal. There is some redness and swelling to the right zygoma area, improving. Zeas-os-ckvyhobg redness, right nose. No major discharge there; that seems to be improving as well. Right eye swelling has improved. She is able to open the eye well now and has no visual defect subjectively. CULTURES: Urine culture and blood cultures are negative. LABORATORY DATA: Lab data from yesterday reviewed. Plasma lactate level has dropped from 2.4 on admission down to 0.9 late yesterday evening. ASSESSMENT: 1. Erysipelas, right face involving the right cheek, nose and orbit, improving. 2. Generalized weakness, improved. 3. Conversion disorder. 4. History of pseudoseizures. 5. Bipolar disorder. 6. 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 7. History of vocal cord cyst removal, remote. 8. History of right breast cancer. 9. Pyuria, thought contaminant. No signs of abnormality on urine culture thus far. 10. Hyperparathyroidism to undergo surgery at a postponed date, likely after 2 weeks from now. PLAN: Continue 1 more day of Zosyn and vancomycin and likely discharge home tomorrow on doxycycline and Avelox if the patient continues to do well. We will give Lovenox for DVT prevention and advised ambulation. Discontinue IV fluids. cc: Preston Anthony MD
[2019-05-05] MEDS: ZOSYN 3.375 GM in NS 50 ML IV SCH ×2 (02:04→09:32)
[2019-05-05] MEDS: SYNTHROID PO SCH (06:56)
[2019-05-05 07:50] VITALS: BP 123/67
[2019-05-05] MEDS ORDERED: PNEUMOVAX 23 IM ONE (09:07)
[2019-05-05] MEDS: VITAMIN B-12 PO SCH (09:21)
[2019-05-05] MEDS: PRILOSEC PO SCH (09:21)
[2019-05-05] MEDS: LASIX PO SCH (09:21)
[2019-05-05] MEDS: EFFEXOR XR PO SCH (09:21)
[2019-05-05] MEDS: CENTRUM SILVER PO SCH (09:21)
[2019-05-05] MEDS: VITAMIN D PO SCH (09:21)
[2019-05-05] MEDS: DEPAKOTE ER PO SCH (09:21)
[2019-05-05] MEDS: LOVENOX SUBQ SCH ×2 (09:22→09:23)
[2019-05-05] MEDS: VANCOMYCIN 1,100 MG in NS 250 ML IV SCH (09:32)
--- NOTE | 2019-05-05 10:00 | PROGRESS NOTE ---
DATE: 05/05/2019 SUBJECTIVE: Patient doing better. Less redness and swelling of the nose and right cheek and her eye is much improved. OBJECTIVE: Afebrile. Vital signs stable.CV: RRR without murmur. Lungs: CTA. Extremities: No calf tenderness, cords or edema. Right cheek area has marked improvement in redness and swelling. There is no redness or swelling at the orbit any longer and her eye is opening well. She has moderate redness at the right nose and mild swelling but that has improved markedly. There is no discharge. A couple of scabbed lesions have come up now where the serous discharge was noted earlier. ASSESSMENT: 1. Erysipelas, right face. 2. Generalized weakness, resolved. 3. 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 4. History of right breast cancer. 5. History of vocal cord cyst removal. 6. Pyuria with negative urine culture. 7. Hyperparathyroidism followed by Dr. Valencia, and ENT in [place] with postponement of surgery for 2 to 3 weeks due to #1. 8. Conversion disorder. 9. History of pseudoseizures. 10. Bipolar disorder. PLAN: Discharge home on Avelox and doxycycline. Warm compresses. Follow up in my office in 6 days. cc: Preston Anthony MD
== END 2019-05-05 11:08 | disposition home or self-care (01) | DRG 603 ==
LOC: SUPCPDRO → 3N 12:03 → ED 12:03
PROVIDERS: ADMIT Family Medicine; ATTEND Family Medicine
CPT/HCPCS: 70543; 71010; 71045; 80053; 81001; 82550; 83605; 84484; 85025; 85610; 85730; 87040; 87088; 90732; 93005; 94761; 96365; 96375; 99285; 99291; A9270; A9579; J1650; J2543; J3370; J3480; J7030; J7050

== ENCOUNTER 2020-02-12 20:01 | Inpatient (IN) ==
--- NOTE | 2020-02-12 20:54 | Diag Imaging Result Doc PS360 ---
EXAM: CHEST-PORTABLE HISTORY: SOB TECHNIQUE: Single view COMPARISON: 05/03/2019 FINDINGS: The lungs are well expanded except for right basilar atelectasis. The heart is not enlarged. The vessels are not distended. There are no infiltrates. No effusion identified. IMPRESSION: Right basilar atelectasis Electronically signed by Lokesh Sandhu 02/12/2020 8:52 PM
--- NOTE | 2020-02-12 21:09 | PROVIDER DOCUMENTATION ---
HPI-Respiratory General - General Chief Complaint: Shortness of Breath Stated Complaint: Exacerbation of Asthma Time Seen by Provider: 02/12/20 20:24 Allergies/Adverse Reactions: Patient Allergies Allergy/AdvReac Type Severity Reaction Status Date / Time Sulfa (Sulfonamide Allergy HIVES Verified 02/12/20 20:30 Antibiotics) oxycodone [From OxyContin] AdvReac Unknown Verified 02/12/20 20:30 Home Medications: Home Medication List Medication Instructions Recorded Confirmed Last Taken Type Omeprazole 40 mg PO DAILY 02/11/13 12/19/18 05/02/19 21:00 History Venlafaxine HCl [Venlafaxine HCl 75 mg PO DAILY 07/29/14 12/19/18 05/02/19 21:00 History ER] Furosemide [Lasix] 40 mg PO DAILY 08/31/16 12/19/18 05/02/19 21:00 History Cholecalciferol (Vitamin D3) 2,000 units PO DAILY 07/13/18 12/19/18 05/02/19 21:00 History [Vitamin D3] Cyanocobalamin (Vitamin B-12) 1,000 mcg SL DAILY 07/13/18 12/19/18 05/02/19 21:00 History [Vitamin B12] Divalproex E.r. [Depakote ER] 250 mg PO BID 07/13/18 12/19/18 05/02/19 21:00 History Multivitamin with Minerals [One 1 tab PO DAILY 07/13/18 12/19/18 05/02/19 21:00 History Tablet Daily W-Minerals] Acetaminophen [Tylenol] 650 mg PO Q6H PRN PRN tab 05/05/19 Unknown Rx Doxycycline 100 mg PO BID #20 tab 05/05/19 Unknown Rx Levothyroxine [Synthroid] 50 microgm PO DAILY@0700 #30 tab 05/05/19 Unknown Rx Moxifloxacin HCl [Avelox] 400 mg PO DAILY #8 tab 05/05/19 Unknown Rx Past History - Adult - PAST MEDICAL HISTORY-ADULT Major Childhood Illnesses: reports: denies history Cardiovascular: reports: denies history Respiratory: reports: denies history Gastrointestinal: reports: cancer, GERD Obstetrical/Gynecological: reports: denies history Genitourinary: reports: denies history Musculoskeletal: reports: denies history Neurological: reports: headaches/migraines Psychiatric: reports: depression Endocrine/Immune: reports: thyroid disorder Other Conditions: reports: denies history - PRIOR SURGERIES/PROCEDURES Surgical/Procedure History: reports: hysterectomy, tonsillectomy, bowel surgery - IMMUNIZATION STATUS Childhood Immunizations: See Nurse Assessment Flu Vaccine: See Nurse Assessment - FAMILY HISTORY Family History: reviewed, not pertinent Progress - PLAN OF CARE/RESULTS Progress/Plan/Lab Results: Vital Signs - 8 hr 02/12/20 20:17 Temperature 98.8 F Pulse Rate 98 H Respiratory Rate 20 Blood Pressure 137/65 O2 Sat by Pulse Oximetry 97 Orders Category Date Time Status NEWS Score 2-4:Order NEWS Lactate Series NOW Care 02/12/20 20:22 Active CHEST-PORTABLE [RAD] Stat Exams 02/12/20 20:24 Completed CBC WITH ELECTRONIC DIFF [HEME] Stat Lab 02/12/20 20:25 Uncollected COMPREHENSIVE METABOLIC PANEL [CHEM] Stat Lab 02/12/20 20:25 Uncollected LACTATE, PLASMA [CHEM] Lab 02/12/20 20:30 Uncollected LACTATE, PLASMA [CHEM] Lab 02/12/20 23:30 Uncollected LACTATE, PLASMA [CHEM] Lab 02/13/20 02:30 Uncollected PRO B-NATRIURETIC PEPTIDE Stat Lab 02/12/20 20:25 Uncollected PT [PROTIME WITH INR] [COAG] Stat Lab 02/12/20 20:25 Uncollected PTT [COAG] Stat Lab 02/12/20 20:25 Uncollected TROPONIN T HIGH SENSITIVITY Stat Lab 02/12/20 20:25 Uncollected - XRAY 1 XRAY Study: Chest (EXAM: CHEST-PORTABLE HISTORY: SOB TECHNIQUE: Single view COMPARISON: 05/03/2019 FINDINGS: The lungs are well expanded except for right basilar atelectasis. The heart is not enlarged. The vessels are not distended. There are no infiltrates. No effusion identified. IMPRESSION: Right basilar atelectasis Electronically signed by Lokesh Sandhu 02/12/2020 8:52 PM) Departure - Departure Referrals and Follow-Ups: None,PCP [Primary Care Provider] -
[2020-02-12] MEDS ORDERED: SOLU-MEDROL IV ONE (21:28)
[2020-02-12] MEDS ORDERED: PULMICORT INH ONE (21:32)
[2020-02-12] MEDS ORDERED: DUONEB (A & A) INH ONE (21:32)
[2020-02-12 22:03] LABS: ALLEN TEST YES; BE 1.5 mmoll (-3.0-3.0); BLOOD TYPE ARTERIAL; HCO3-(ACT) 26.1 mmoll (20.0-26.0); METHB 0.7 % (0.0-1.5); O2(CT) 15.8 mL/dL (15.0-23.0); O2HB 96.8 % (95.0-99.0); PCO2(98.6) 39 mmHg (35-45); PO2(98.6) 112 mmHg (60-100); SAMPLE BLOOD; THB 11.5 g/dL (11.5-17.4); pH(98.6) 7.43 (7.35-7.45)
[2020-02-12 22:04] LABS: MODALITY CANNULA
[2020-02-12 22:30] LABS: BASO# 0.05 X1000 (0.0-0.2); BASO% 0.7 % (0.0-0.8); EOS# 0.43 X1000 (0.0-0.7); EOS% 6.4 % (0.0-10.0); HEMATOCRIT 40.3 % (37.0-47.0); INR 0.91; LYMPH# 1.58 X1000 (1.2-3.4); LYMPH% 23.6 % (20.5-51.1); MCH 26.7 PG (27-31); MCHC 32.3 g/dL (33-37); MCV 82.8 FL (81-99); MPV 11.6 FL (7.4-10.4); NEUT# 4.23 X1000 (1.4-6.5); NEUT% 63.3 % (42.2-75.2); PLT 201 X1000 (130-400); PROTIME 12.3 Seconds (11.0-16.0); RBC 4.87 XMIL (4.2-5.4); RDW 13.6 % (11.5-14.5); WBC 6.69 X1000 (4.8-10.8)
[2020-02-12 22:31] LABS: PTT 28.8 Seconds (22.3-41.8)
[2020-02-12 22:55] LABS: AGAP 16; ALB/GLOB RATIO 2.2; ALBUMIN 4.6 g/dL (3.5-5.0); ALKALINE PHOSPHATASE 98 U/L (32-104); BUN 13 mg/dL (8-22); CALCIUM 9.5 mg/dL (8.8-10.2); CHLORIDE 101 mmol/L (98-107); COSMO 283; CREATININE 0.9 mg/dL (0.5-0.9); ESTIMATED GFR > 60; GLUCOSE 103 mg/dL (70-104); GOT 18 U/L (10-30); GPT 11 U/L (10-36); POTASSIUM 3.7 mmol/L (3.5-5.1); SODIUM 142 mmol/L (136-145); TCO2 25 mmol/L (25-35); TOTAL PROTEIN 6.7 g/dL (6.3-8.3)
--- NOTE | 2020-02-12 23:19 | PROVIDER DOCUMENTATION ---
This chart was entered by Tiera Lopez Scribe, acting as scribe for Starr Neumann MD. HPI-Respiratory General - General Chief Complaint: Shortness of Breath Stated Complaint: Exacerbation of Asthma Time Seen by Provider: 02/12/20 20:24 Source: patient Allergies/Adverse Reactions: Patient Allergies Allergy/AdvReac Type Severity Reaction Status Date / Time Sulfa (Sulfonamide Allergy HIVES Verified 02/12/20 20:30 Antibiotics) oxycodone [From OxyContin] AdvReac Unknown Verified 02/12/20 20:30 Home Medications: Home Medication List Medication Instructions Recorded Confirmed Last Taken Type Omeprazole 40 mg PO DAILY 02/11/13 12/19/18 05/02/19 21:00 History Venlafaxine HCl [Venlafaxine HCl 75 mg PO DAILY 07/29/14 12/19/18 05/02/19 21:00 History ER] Furosemide [Lasix] 40 mg PO DAILY 08/31/16 12/19/18 05/02/19 21:00 History Cholecalciferol (Vitamin D3) 2,000 units PO DAILY 07/13/18 12/19/18 05/02/19 21:00 History [Vitamin D3] Cyanocobalamin (Vitamin B-12) 1,000 mcg SL DAILY 07/13/18 12/19/18 05/02/19 21:0 0 History [Vitamin B12] Divalproex E.r. [Depakote ER] 250 mg PO BID 07/13/18 12/19/18 05/02/19 21:00 History Multivitamin with Minerals [One 1 tab PO DAILY 07/13/18 12/19/18 05/02/19 21:00 History Tablet Daily W-Minerals] Acetaminophen [Tylenol] 650 mg PO Q6H PRN PRN tab 05/05/19 Unknown Rx Doxycycline 100 mg PO BID #20 tab 05/05/19 Unknown Rx Levothyroxine [Synthroid] 50 microgm PO DAILY@0700 #30 tab 05/05/19 Unknown Rx Moxifloxacin HCl [Avelox] 400 mg PO DAILY #8 tab 05/05/19 Unknown Rx - History of Present Illness-Resp Nature of Presenting Problem: pt is a 74 yr old female presenting via EMS with complaint of worsening shortness of breath and dry cough, onset yesterday, worse today after working in her yard. pt reports neb tx at 1430 with no relief, no relief with inhaler. pt denies fever/chills. Quality of Pain: reports: none Severity in ED: reports: moderate Onset/Duration: reports: 24 hours ago Timing: reports: changing over time, getting worse Exposure: reports: unknown cause Cough Quality/Degree: reports: moderate, dry cough Episode Frequency: rare episodes Current Respiratory Medication Therapy: Initiated albuterol/atrovent inhale, Initiated albuterol Modifying Factors: improves with: albuterol inhaler (no relief), albuterol nebulizer (no relief) Associated Symptoms: reports: cough, shortness of breath, wheezing. denies: fever/chills, muscle/bodyaches Similar Symptoms Previously?: No Recently seen or treated by another doctor?: No Review of Systems - Adult - REVIEW OF SYSTEMS - ADULT Constitutional: denies: chills, fever Eyes: reports: no symptoms reported Ears, Nose, Mouth & Throat: reports: no symptoms reported Cardiovascular: denies: chest pain, palpitations, syncope Respiratory: reports: cough, shortness of breath, wheezing Gastrointestinal: reports: no symptoms reported Genitourinary: reports: no symptoms reported Musculoskeletal: denies: muscle aches Integumentary: reports: no symptoms reported Neurological: denies: dizziness/vertigo, headache/migraines Psychiatric: reports: no symptoms reported Endocrine: reports: no symptoms reported Hematologic/Lymphatic: reports: no symptoms reported Allergic/Immunologic: reports: no symptoms reported All Other Systems: Reviewed and Negative Past History - Adult - PAST MEDICAL HISTORY-ADULT Review of Records: reports: Old Records Reviewed, Nursing Assessment Review, Medications Reviewed, Social history reviewed & non-contributory. Major Childhood Illnesses: reports: denies history Cardiovascular: reports: denies history Respiratory: reports: denies history Gastrointestinal: reports: cancer, GERD Obstetrical/Gynecological: reports: denies history Genitourinary: reports: denies history Musculoskeletal: reports: denies history Neurological: reports: headaches/migraines Psychiatric: reports: depression Endocrine/Immune: reports: thyroid disorder Other Conditions: reports: denies history - PRIOR SURGERIES/PROCEDURES Surgical/Procedure History: reports: hysterectomy, tonsillectomy, bowel surgery - IMMUNIZATION STATUS Childhood Immunizations: See Nurse Assessment Flu Vaccine: See Nurse Assessment - FAMILY HISTORY Family History: reviewed, not pertinent - SOCIAL HISTORY Smoking: denies Substance Use: denies Living Situation: family Physical Exam-General - PHYSICAL EXAM-ADULT Initial Vital Signs Reviewed: Yes - CONSTITUTIONAL General Appearance: appears well, alert, no apparent distress - EYES Eyes: PERRL/EOMI - HEAD, EARS, NOSE, MOUTH & THROAT HENMT: normocephalic/atraumatic, moist mucous membranes, normal ENT inspection - NECK Neck: non-tender, full range of motion, supple, normal inspection - RESPIRATORY Respiratory: chest non-tender, no respiratory distress, no accessory muscle use, decreased breath sounds, wheezing (diffuse), increased rate. negative: respiratory distress - CARDIOVASCULAR Cardiovascular: normal peripheral pulses, regular rate, rhythm - GASTROINTESTINAL (ABDOMEN) Abdominal Exam: normal bowel sounds, non tender, soft - LYMPHATIC Lymphatic: no adenopathy - MUSCULOSKELETAL Back Exam: normal inspection, no CVA tenderness, no vertebral tenderness Extremity: normal range of motion, non-tender, normal gait, normal inspection - SKIN Integumentary: normal color, normal turgor, warm/dry - NEUROLOGIC Neurologic: grossly normal, no motor/sensory deficits - PSYCHIATRIC Psych/Mental Status: normal mood/affect, normal thought content, normal thought process, oriented x 3 Progress - PLAN OF CARE/RESULTS Progress/Plan/Lab Results: Vital Signs - 8 hr 02/12/20 20:17 02/12/20 22:07 02/12/20 22:19 Temperature 98.8 F 98 F Pulse Rate 98 H 88 88 Respiratory Rate 20 16 20 Blood Pressure 137/65 130/66 O2 Sat by Pulse Oximetry 97 100 100 Laboratory Results - last 24 hr 02/12/20 02/12/20 02/12/20 21:32 22:00 22:00 WBC RBC Hgb Hct MCV MCH MCHC RDW Std Deviation Plt Count MPV Immature Gran % (Auto) Neut % (Auto) Lymph % (Auto) [place] % (Auto) Eos % (Auto) Baso % (Auto) Immature Gran # (Auto) Neut # (Auto) Lymph # (Auto) [place] # (Auto) Eos # (Auto) Baso # (Auto) PT INR PTT (Actin FS) Specimen Type ARTERIAL Sample Site R BRACHIAL pH 7.43 pCO2 39 pO2 112 H HCO3 26.1 H Base Excess 1.5 Oxyhemoglobin 96.8 ABG O2 Sat (Calculated) 15.8 ABG O2 Saturation 98.0 ABG Carboxyhemoglobin 0.50 ABG Methemoglobin 0.7 Ron Test YES A-a O2 Difference 67.0 Total Hemoglobin 11.5 Lactate 1.40 Liter Flow 3.0 Blood Gas Modality CANNULA FiO2 % 32.0 Sodium 142 Potassium 3.7 Chloride 101 Carbon Dioxide 25 Anion Gap 16 BUN 13 Creatinine 0.9 Estimated GFR/1.73 m2 > 60 BUN/Creatinine Ratio 14 Glucose 103 Calculated Osmolality 283 Calcium 9.5 Total Bilirubin 0.30 AST 18 ALT 11 Alkaline Phosphatase 98 Troponin T High Sens Fpb-P-Pjneqegpdms Pept Total Protein 6.7 Albumin 4.6 Globulin 2.1 Albumin/Globulin Ratio 2.2 Plasma Lactate 2.4 H 02/12/20 02/12/20 02/12/20 22:00 22:00 22:00 WBC 6.69 RBC 4.87 Hgb 13.0 Hct 40.3 MCV 82.8 MCH 26.7 L MCHC 32.3 L RDW Std Deviation 13.6 Plt Count 201 MPV 11.6 H Immature Gran % (Auto) 0.0 Neut % (Auto) 63.3 Lymph % (Auto) 23.6 [place] % (Auto) 6.0 Eos % (Auto) 6.4 Baso % (Auto) 0.7 Immature Gran # (Auto) 0.00 Neut # (Auto) 4.23 Lymph # (Auto) 1.58 [place] # (Auto) 0.40 Eos # (Auto) 0.43 Baso # (Auto) 0.05 PT INR PTT (Actin FS) Specimen Type Sample Site pH pCO2 pO2 HCO3 Base Excess Oxyhemoglobin ABG O2 Sat (Calculated) ABG O2 Saturation ABG Carboxyhemoglobin ABG Methemoglobin Ron Test A-a O2 Difference Total Hemoglobin Lactate Liter Flow Blood Gas Modality FiO2 % Sodium Potassium Chloride Carbon Dioxide Anion Gap BUN Creatinine Estimated GFR/1.73 m2 BUN/Creatinine Ratio Glucose Calculated Osmolality Calcium Total Bilirubin AST ALT Alkaline Phosphatase Troponin T High Sens 8 Euh-L-Awfvjuvfoxk Pept 340 Total Protein Albumin Globulin Albumin/Globulin Ratio Plasma Lactate 02/12/20 22:00 WBC RBC Hgb Hct MCV MCH MCHC RDW Std Deviation Plt Count MPV Immature Gran % (Auto) Neut % (Auto) Lymph % (Auto) [place] % (Auto) Eos % (Auto) Baso % (Auto) Immature Gran # (Auto) Neut # (Auto) Lymph # (Auto) [place] # (Auto) Eos # (Auto) Baso # (Auto) PT 12.3 INR 0.91 PTT (Actin FS) 28.8 Specimen Type Sample Site pH pCO2 pO2 HCO3 Base Excess Oxyhemoglobin ABG O2 Sat (Calculated) ABG O2 Saturation ABG Carboxyhemoglobin ABG Methemoglobin Ron Test A-a O2 Difference Total Hemoglobin Lactate Liter Flow Blood Gas Modality FiO2 % Sodium Potassium Chloride Carbon Dioxide Anion Gap BUN Creatinine Estimated GFR/1.73 m2 BUN/Creatinine Ratio Glucose Calculated Osmolality Calcium Total Bilirubin AST ALT Alkaline Phosphatase Troponin T High Sens Arf-C-Mfngektffhw Pept Total Protein Albumin Globulin Albumin/Globulin Ratio Plasma Lactate Orders Category Date Time [facility] Routine AdmDCTranf 02/13/20 00:44 Active NEWS Score 2-4:Order NEWS Lactate Series NOW Care 02/12/20 20:22 Active Saline Loc NOW Care 02/13/20 00:46 Active Vital Signs Order Q 4-HR ASSESS Care 02/13/20 00:46 Active Z-Document. for Tele Applied ORDERED Care 02/13/20 00:46 Active Regular Diet Diet 02/13/20 00:46 Active CHEST-PORTABLE [RAD] Stat Exams 02/12/20 20:24 Completed ABG [RESP] Routine Lab 02/12/20 21:32 Completed BLOOD CULTURE [BLDCUL] Stat Lab 02/12/20 21:28 Ordered CBC WITH ELECTRONIC DIFF [HEME] Stat Lab 02/12/20 22:00 Completed CK PROFILE [SP CHEM] Q8H Lab 02/13/20 01:00 Uncollected CK PROFILE [SP CHEM] Q8H Lab 02/13/20 09:00 Uncollected CK PROFILE [SP CHEM] Q8H Lab 02/13/20 17:00 Uncollected COMPREHENSIVE METABOLIC PANEL [CHEM] Stat Lab 02/12/20 22:00 Completed D-DIMER [COAG] Routine Lab 02/13/20 00:47 Uncollected LACTATE, PLASMA [CHEM] Lab 02/12/20 22:00 Completed LACTATE, PLASMA [CHEM] Lab 02/12/20 23:30 Uncollected LACTATE, PLASMA [CHEM] Lab 02/13/20 02:30 Uncollected PRO B-NATRIURETIC PEPTIDE Routine Lab 02/13/20 00:47 Uncollected PRO B-NATRIURETIC PEPTIDE Stat Lab 02/12/20 22:00 Completed PT [PROTIME WITH INR] [COAG] Stat Lab 02/12/20 22:00 Completed PTT [COAG] Stat Lab 02/12/20 22:00 Completed TROPONIN T HIGH SENSITIVITY Q8H Lab 02/13/20 01:00 Uncollected TROPONIN T HIGH SENSITIVITY Q8H Lab 02/13/20 09:00 Uncollected TROPONIN T HIGH SENSITIVITY Q8H Lab 02/13/20 17:00 Uncollected TROPONIN T HIGH SENSITIVITY Stat Lab 02/12/20 22:00 Completed Albuterol 2.5MG/Ipratrop 0.5MG [Duoneb (A & A)] Med 02/12/20 21:32 D iscontinued 3 ml INH NOW ONE Albuterol 2.5MG/Ipratrop 0.5MG [Duoneb (A & A)] Med 02/13/20 00:48 Active 3 ml INH Q2H PRN PRN Albuterol 2.5MG/Ipratrop 0.5MG [Duoneb (A & A)] Med 02/13/20 03:30 Active 3 ml INH RTQ4H Budesonide [Pulmicort] Med 02/12/20 21:32 Discontinued 0.5 mg INH NOW ONE Enoxaparin [Lovenox] Med 02/14/20 09:00 Active 40 mg SUBQ Q24H Methylprednisolone Sod Succ [Solu-Medrol] Med 02/12/20 21:28 Discontinued 125 mg IV NOW ONE Methylprednisolone Sod Succ [Solu-Medrol] Med 02/13/20 05:30 Active 30 mg IV Q8H Pantoprazole [Protonix] Med 02/13/20 01:00 Active 40 mg IV Q24H Sodium Chloride 0.9% Med 02/13/20 01:00 Active 10 ml INJ DIRECTED Aerosol Treatments Routine Oth 02/12/20 21:33 Completed Aerosol Treatments Routine Oth 02/13/20 00:49 Active Aerosol Treatments Stat Oth 02/12/20 21:33 Completed Aerosol Treatments Stat Oth 02/13/20 00:49 Active Telemetry [OM.EQ] Routine Oth 02/13/20 00:46 Active Transfer/Admit Order [TRANSFER] Routine Transfer 02/13/20 00:45 Ordered Result Diagrams: 02/12/20 22:00 02/12/20 22:00 - XRAY 1 XRAY Study: Chest Impression: Abnormal (Department of Imaging Patient: SAMANTA JONES AADM Date: 02/12/20#: [id number] : 1945DM Status: PRE ERAcct#: [id number] Age/Sex: 74/FRoom/Bed: Loc: ED Ordering Physician: Starr Neumann MD Family Physician: Reason for Procedure: SOB Signed EXAM: CHEST-PORTABLE HISTORY: SOB TECHNIQUE: Single view COMPARISON: 05/03/2019 FINDINGS: The lungs are well expanded except for right basilar atelectasis. The heart is not enlarged. The vessels are not distended. There are no infiltrates. No effusion identified. IMPRESSION: Right basilar atelectasis Electronically signed by Lokesh Sandhu 02/12/2020 8:52 PM 02/12/202051 Interpreting Physician: Lokesh Sandhu MD Dictated Date/Time: 02/12/202050 cc: Starr Neumann MD;) - CONSULTS/PCP/HOSPITALIST Notification #1 *Consult/PCP/Hospitalist*: Dr Urbina Time Discussed: 23:47 Consult Disposition: Admit Departure - Departure Date of Disposition Decision: 02/13/20 Time of Disposition Decision: 00:56 DIAGNOSIS: Asthma exacerbation, Shortness of breath Disposition: ADMITTED INPATIENT 09 Certified Medical Emergency: Emergent Condition: Stable Referrals and Follow-Ups: None,PCP [Primary Care Provider] - - Critical Care Note This patient required my direct & personal management of CC.: Yes Total Time (mins): 35 Critical Care Statement: This patient required my direct personal management to treat or rule out processes, the absence of which, could potentiallly result in sudden, clinically significant life or limb threatening deterioration. Attestation - Physician/ GHULAM Attestation Patient care was provided by Advanced Practice Provider:: No The physician spent face to face time with patient:: Yes Advanced Practice Provider documentation review:: Supervising physician onsite and consulted in the evaluation and care of this patient. The physician did have a face to face encounter with the patient. This chart was documented by the indicated scribe, (Tiera Lopez Scribe) and accurately reflects the services I performed and decisions made by me, Starr Neumann MD, as attested by the provider's signature.
[2020-02-13] MEDS ORDERED: DUONEB (A & A) INH PRN ×2 (00:48→06:10)
[2020-02-13] MEDS ORDERED: PROTONIX IV SCH (01:00)
[2020-02-13] MEDS ORDERED: SODIUM CHLORIDE 0.9% INJ SCH (01:00)
[2020-02-13] MEDS: LEVAQUIN 500 MG/D5W 500 MG/100 ML IVPB IV SCH (02:27)
[2020-02-13] MEDS ORDERED: DUONEB (A & A) INH SCH (03:30)
[2020-02-13] MEDS ORDERED: SOLU-MEDROL IV SCH (05:30)
--- NOTE | 2020-02-13 06:33 | HISTORY AND PHYSICAL ---
CHIEF COMPLAINT: Shortness of breath as well as cough. HISTORY OF PRESENT ILLNESS: Ms. Bri Lee is a 74-year-old female, who has a history of bronchial asthma. She presented to the hospital because of worsening shortness of breath as well as a nonproductive cough. The patient also describes having wheezing. X-ray of the chest done at the time of presentation showed right basilar atelectasis. The patient has been involved in outdoor gardening lately and has been exposed to the pollen. The patient is now admitted to the floor for further management. PAST MEDICAL HISTORY: Bronchial asthma, gastroesophageal reflux disease, history of stomach cancer status post partial gastrectomy as well as chemotherapy, hypothyroidism, and history of migraine headaches. SOCIAL HISTORY: No history of cigarette smoking, or alcohol or drug use. ALLERGIES: The patient is allergic to sulfa as well as oxycodone. PAST SURGICAL HISTORY: She has had a thyroidectomy, partial gastrectomy, cholecystectomy right shoulder surgery, carpal tunnel surgery, hysterectomy, as well as tonsillectomy. FAMILY HISTORY: Positive for cancer. MEDICATIONS: Omeprazole 40 mg p.o. daily. Venlafaxine 75 mg p.o. daily. Lasix 40 mg p.o. daily. Vitamin D 2,000 units p.o. daily. Cyanocobalamin 1000 mcg p.o. daily. Depakote ER 250 mg p.o. twice a day. Multivitamin 1 p.o. daily. Acetaminophen 650 mg every 6 hours p.r.n. Doxycycline 100 mg p.o. twice a day. Levothyroxine 50 mcg p.o. daily. Avelox 400 mg p.o. daily. REVIEW OF SYSTEMS: Constitutional: No fever. EQUAL OPPORTUNITY REPRESENTATIVE: Has headaches. ENT: No sinus problems. Cardiovascular: No chest pain. GI: No nausea, vomiting or diarrhea. : No dysuria. Dermatology: No skin lesions. Hematology: The patient bleeds easily. Musculoskeletal: Has joint pains. Endocrinology: Has thyroid disease. No diabetes. Allergy: The patient does have symptoms of allergic rhinitis. Psychiatric: She does have depression. PHYSICAL EXAMINATION: SIGNS: Temperature 98 degrees, pulse is 88, respiratory rate 20, blood pressure is 130/66, oxygen saturation 100%. HEENT: Atraumatic, normocephalic. She is anicteric. Extraocular movements intact. No oral lesions noted. NECK: No lymphadenopathy or thyromegaly. CARDIOVASCULAR: S1, S2. RESPIRATORY SYSTEM: Has evidence of good air entry bilaterally. ABDOMEN: Soft, nontender. No masses felt. EXTREMITIES: No evidence of edema. CENTRAL NERVOUS SYSTEM: No obvious focal deficit noted. DIAGNOSTIC STUDIES: WBC 6.69, hematocrit 40.3, with a platelet count of 201,000. D-dimer is 0.78. ABG 7.43/9/112/98%. Sodium 142, potassium 3.7, chloride is 101, bicarb is 25, BUN is 13, creatinine 0.9. Chest x-ray shows right basilar atelectasis. ASSESSMENT AND PLAN: 1. Bronchial asthma exacerbation. Maintain patient on nebulized bronchodilators, steroids, as well as antibiotics, along with oxygen supplementation. 2. Elevated D-dimer level. Obtain a CTA of the chest. If negative proceed and obtain Doppler of the lower extremities. 3. Gastroesophageal reflux disease. Maintain patient on proton pump inhibitor. 4. History of stomach cancer, status post partial gastrectomy as well as chemotherapy. Aware. 5. Hypothyroidism. Continue levothyroxine. 6. Deep vein thrombosis prophylaxis. Lovenox. 7. Gastrointestinal prophylaxis. Proton pump inhibitor. cc: Alejandro Urbina MD
[2020-02-13] MEDS: SOLU-MEDROL IV SCH ×4 (06:42→22:15)
[2020-02-13] MEDS: SYNTHROID PO SCH (06:43)
[2020-02-13] MEDS: PRILOSEC PO SCH (06:43)
[2020-02-13] MEDS ORDERED: PRILOSEC PO SCH (07:00)
--- NOTE | 2020-02-13 08:13 | Diag Imaging Result Doc PS360 ---
CT ANGIOGRM PULMONARY ARTERIES - 02/13/2020 INDICATION: elevated d dimer TECHNIQUE: Axial CT images were obtained after administering intravenous contrast. Coronal MIP images were generated. COMPARISON: Chest x-ray from 02/12/2020 FINDINGS: There is no pulmonary embolism. No adenopathy. Heart and great vessels are normal. Upper abdominal images are normal. Lung volumes are low with some patchy bibasilar atelectasis. Otherwise no significant infiltrates. No edema. Airways are clear. There are moderate degenerative changes of the spine. No acute or suspicious bony lesion. IMPRESSION: No acute disease. This exam was performed using automated exposure control, adjustment of mA or kV according to patient size, and/or use of iterative reconstruction technique Electronically signed by Dell Brady 02/13/2020 8:10 AM
[2020-02-13] MEDS: DUONEB (A & A) INH SCH ×5 (08:52→22:57)
[2020-02-13] MEDS: VITAMIN B-12 PO SCH (08:53)
[2020-02-13] MEDS: EFFEXOR XR PO SCH (08:53)
[2020-02-13] MEDS: CENTRUM SILVER PO SCH (08:54)
[2020-02-13] MEDS: DEPAKOTE ER PO SCH ×2 (08:54→22:15)
[2020-02-13] MEDS: VITAMIN D PO SCH (08:54)
[2020-02-13] MEDS: LOVENOX SUBQ SCH (08:58)
[2020-02-13] MEDS ORDERED: TYLENOL PO PRN (20:42)
[2020-02-13] MEDS: NS 1,000 ML IV SCH (22:31)
[2020-02-14] MEDS: LEVAQUIN 500 MG/D5W 500 MG/100 ML IVPB IV SCH (01:08)
[2020-02-14] MEDS: DUONEB (A & A) INH SCH ×6 (03:35→23:40)
[2020-02-14] MEDS: SOLU-MEDROL IV SCH ×3 (06:38→21:29)
[2020-02-14] MEDS: SYNTHROID PO SCH (06:38)
[2020-02-14] MEDS: PRILOSEC PO SCH (06:38)
[2020-02-14 06:58] LABS: HEMOGLOBIN 11.3 g/dL (12.0-16.0); LYMPH# 0.37 X1000 (1.2-3.4); LYMPH% 6.1 % (20.5-51.1); MCH 26.3 PG (27-31); MCHC 31.4 g/dL (33-37); MCV 83.7 FL (81-99); MONO# 0.05 X1000 (0.11-0.59); MONO% 0.8 % (1.7-9.3); MPV 11.2 FL (7.4-10.4); NEUT# 5.63 X1000 (1.4-6.5); NEUT% 93.1 % (42.2-75.2); PLT 171 X1000 (130-400); RDW 13.6 % (11.5-14.5); WBC 6.05 X1000 (4.8-10.8)
[2020-02-14 07:25] LABS: AGAP 12; BUN 13 mg/dL (8-22); CALCIUM 9.4 mg/dL (8.8-10.2); CHLORIDE 101 mmol/L (98-107); COSMO 279; CREATININE 0.7 mg/dL (0.5-0.9); ESTIMATED GFR > 60; GLUCOSE 181 mg/dL (70-104); POTASSIUM 4.2 mmol/L (3.5-5.1); SODIUM 137 mmol/L (136-145); TCO2 24 mmol/L (25-35)
[2020-02-14 07:52] LABS: BANDS 2 % (0-1); HYPOCHROM 1+; LYMPHS 6 % (21-51); SEGS 92 % (42-75)
[2020-02-14] MEDS ORDERED: LOVENOX SUBQ SCH ×2 (09:00)
[2020-02-14] MEDS: LOVENOX SUBQ SCH (09:58)
[2020-02-14] MEDS: CENTRUM SILVER PO SCH (09:58)
[2020-02-14] MEDS: VITAMIN B-12 PO SCH (09:58)
[2020-02-14] MEDS: EFFEXOR XR PO SCH (09:58)
[2020-02-14] MEDS: DEPAKOTE ER PO SCH ×2 (09:58→21:28)
[2020-02-14] MEDS: VITAMIN D PO SCH (09:58)
--- NOTE | 2020-02-14 11:38 | PROGRESS NOTE ---
DATE: 02/14/2020 SUBJECTIVE: Patient lying generally flat in the bed, and appears minimally anxious. She appeared very comfortable when I initially came into the room. She says she has had some shortness of breath. OBJECTIVE: Afebrile, pulse 90, respirations 16, blood pressure 132/59, and O2 saturation 100% on 2 L per nasal cannula. Also, documented at 100% on room air. CV: RRR. Lungs: Slightly coarse breath sounds, cannot rule out rare minimal wheeze. Abdomen: Soft, nontender, and nondistended. Extremities: No calf tenderness, cords or edema. Neurologic: Cranial nerves 2-12 are intact. Nonfocal. DATA REVIEWED FROM HOSPITAL ADMISSION: I was not notified of patient's admission, but she showed up on my list this morning. She was seen by the hospitalist yesterday. White count 6, hemoglobin 11.3, and platelets 171,000. D-dimer 0.78, INR 0.91, PTT 28.8. ABG on admission shows pH 7.43, pCO2 39, PO2 112, and HC03 26. O2 saturation 98% on 32% FiO2. Sodium 137, potassium 4.2, chloride 101, CO2 24, BUN 13, creatinine 0.7, and blood sugar 181. CK totals have been 88 and 87 the last 2 times. Her Troponins are less than 6 and 7. Plasma lactate was elevated at 3.5. Blood cultures x2 are negative. CT pulmonary angiogram was obtained, and shows no pulmonary embolism. No adenopathy. Heart and great vessels normal in size. Lung volumes low with some patchy bibasilar atelectasis. Otherwise no infiltrates. Moderate degenerative changes of the spine. Noted no acute or suspicious bony lesions identified. ASSESSMENT: 1. Bronchitis. 2. Asthma exacerbation. 3. Bilateral bibasilar atelectasis. 4. Gastroesophageal reflux disease. 5. 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 6. Hypothyroidism. 7. History of conversion disorder. PLAN: Patient remains on IV Solu-Medrol 60 mg IV q.8 hours. She is on Levaquin 500 mg IV every 24 hours. She is on DuoNeb's q.4 hours. Sats are good. We are going to ambulate the patient, and try to wean her off her oxygen. Continue her home medications. If she does well, we will discharge her home tomorrow morning. cc: Preston Anthony MD
[2020-02-14] MEDS: NS 1,000 ML IV SCH ×3 (16:08→22:23)
[2020-02-15] MEDS: LEVAQUIN 500 MG/D5W 500 MG/100 ML IVPB IV SCH (01:01)
[2020-02-15] MEDS: DUONEB (A & A) INH SCH ×2 (03:38→07:44)
[2020-02-15] MEDS: SOLU-MEDROL IV SCH (06:00)
[2020-02-15] MEDS: PRILOSEC PO SCH (06:01)
[2020-02-15] MEDS: SYNTHROID PO SCH (06:01)
[2020-02-15 07:18] LABS: HEMATOCRIT 33.9 % (37.0-47.0); HEMOGLOBIN 10.6 g/dL (12.0-16.0); LYMPH# 0.61 X1000 (1.2-3.4); LYMPH% 7.2 % (20.5-51.1); MCH 26.2 PG (27-31); MCHC 31.3 g/dL (33-37); MCV 83.9 FL (81-99); MONO# 0.31 X1000 (0.11-0.59); MONO% 3.7 % (1.7-9.3); MPV 11.5 FL (7.4-10.4); NEUT# 7.55 X1000 (1.4-6.5); NEUT% 89.1 % (42.2-75.2); PLT 182 X1000 (130-400); RBC 4.04 XMIL (4.2-5.4); RDW 13.7 % (11.5-14.5); WBC 8.47 X1000 (4.8-10.8)
[2020-02-15 07:19] LABS: AGAP 12; BUN 14 mg/dL (8-22); CALCIUM 8.5 mg/dL (8.8-10.2); CHLORIDE 100 mmol/L (98-107); COSMO 277; CREATININE 0.7 mg/dL (0.5-0.9); ESTIMATED GFR > 60; GLUCOSE 146 mg/dL (70-104); POTASSIUM 4.4 mmol/L (3.5-5.1); SODIUM 137 mmol/L (136-145); TCO2 25 mmol/L (25-35)
[2020-02-15 07:40] VITALS: BP 128/70
[2020-02-15] MEDS: EFFEXOR XR PO SCH (08:56)
[2020-02-15] MEDS: VITAMIN D PO SCH (08:56)
[2020-02-15] MEDS: VITAMIN B-12 PO SCH (08:56)
[2020-02-15] MEDS: DEPAKOTE ER PO SCH (08:56)
[2020-02-15] MEDS: CENTRUM SILVER PO SCH (08:56)
[2020-02-15] MEDS: LOVENOX SUBQ SCH (08:56)
--- NOTE | 2020-02-15 09:22 | DISCHARGE SUMMARY ---
ADMISSION DATE: 02/13/2020 DISCHARGE DATE: 02/15/2020 DIAGNOSES: 1. Bronchitis. 2. Asthma exacerbation. 3. Bibasilar atelectasis. 4. Gastroesophageal reflux disease. 5. 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 6. Hypothyroidism. 7. History of conversion disorder. PROCEDURES: 1. Chest x-ray done 02/12/2020 revealing right basilar atelectasis. 2. CT pulmonary angiogram revealing no acute disease, some patchy bibasilar atelectasis noted. REASON FOR ADMISSION AND HOSPITAL COURSE: The patient is a 74-year-old white female followed in my medical practice, who came in with shortness of breath and nonproductive cough, some wheezing. She was noted on x-ray to have right basilar atelectasis. The patient had been out in the garden and exposed to a lot of pollen. She was admitted to the hospital, started on IV steroids in the form of Solu-Medrol, given IV Levaquin and given DuoNeb, and she showed improvement, wheezing resolved over the next 3 days. She had resolution of shortness of breath symptoms, still had some very mild nonproductive cough. She improved and began to feel better, O2 saturations were running 95 to 100 percent on 2 L. DISCHARGE EXAMINATION: Lungs: Clear. CV: RRR without murmur. Extremities: No calf tenderness, cords or edema. Abdomen: Nontender. Neurologic: Nonfocal. DISPOSITION: Blood cultures x2 remain negative, the patient has been afebrile, she has done well, and it was felt she could be discharged home. DISCHARGE MEDICATIONS: Omeprazole 40 mg p.o. daily. Effexor ER 75 mg p.o. daily. Vitamin D3 2,000 units p.o. daily. Vitamin B12 1,000 mcg sublingual daily. Depakote ER 250 mg p.o. b.i.d. Multivitamin 1 p.o. daily. Synthroid 50 mcg p.o. daily. DuoNeb q.4 hours via nebulizer. Prednisone taper from 40 mg daily. Levaquin 500 mg p.o. daily for another week. Robitussin DM 10 mL p.o. q.4 hours p.r.n. cough. cc: Preston Anthony MD
== END 2020-02-15 10:04 | disposition home or self-care (01) | DRG 202 ==
LOC: ED 20:01 → SUATTDRO 02-13 01:17 → 3N 02-13 01:17
PROVIDERS: ADMIT Family Medicine; ATTEND Family Medicine